=== PATIENT | female | born 1950 | race Caucasian/White ===

== ENCOUNTER 2020-07-29 22:45 | Inpatient (IN) | payer OTHER ==
[~2020-07-29] VITALS: Ht 165.1 cm; Wt 98.7 kg
[2020-07-29 22:47] VITALS: BP 157/73
[2020-07-29] MEDS ORDERED: DALFAMPRIDINE E10 MG PO (23:11)
[2020-07-29] MEDS ORDERED: LEVO-T100 MCG PO (23:11)
[2020-07-29] MEDS ORDERED: MIRAPEX 0.250.25 M1 PO (23:12)
[2020-07-29] MEDS ORDERED: CHILDREN'S ASPI81 M1 PO (23:12)
[2020-07-29 23:18] LABS: ABSOLUTE EOSINOPHILS 0.5 thou/uL (0.0-0.7); ABSOLUTE LYMPHOCYTES 2.7 thou/uL (0.8-5.3); ABSOLUTE MONOCYTES 0.8 thou/uL (0.0-1.2); ABSOLUTE NEUTROPHILS 3.9 thou/uL (1.6-8.1); BASOPHILS 0.6 %; EOSINOPHILS 5.9 %; HEMATOCRIT 38.3 % (37.0-47.0); HEMOGLOBIN 12.9 gm/dL (12.0-15.0); LYMPHOCYTES 34.2 %; MCH 30.6 pg (26.0-34.0); MCHC 33.6 g/dL (28.0-37.0); MCV 91.2 fL (80.0-100.0); MONOCYTES 10.5 %; MPV 7.5 fl. (7.2-11.1); NUCLEATED RBCS 0 /100WBC; PLATELET COUNT* 375 thou/uL (150-400); POLYS 48.8 %
[2020-07-29 23:39] LABS: CALCIUM 8.7 mg/dL (8.5-10.1); CREATININE 0.8 mg/dL (0.6-1.3); POTASSIUM 3.8 mmol/L (3.5-5.1)
[2020-07-29 23:41] LABS: PROTIME 10.3 Seconds (9.20-11.50)
[2020-07-29 23:50] LABS: ALBUMIN 3.3 g/dL (3.4-5.0); MAGNESIUM 2.1 mg/dL (1.8-2.4); TOTAL BILIRUBIN 0.4 mg/dL (<0.1-1.0); TOTAL PROTEIN 7.3 g/dL (6.4-8.2)
[2020-07-30] VITALS (7 sets, daily range): BP systolic 135–151; BP diastolic 41–87
[2020-07-30 03:01] LABS: URINE BILIRUBIN NEGATIVE (Negative); URINE BLOOD NEGATIVE (Negative); URINE CLARITY CLEAR; URINE COLOR YELLOW; URINE GLUCOSE-RANDOM NEGATIVE (Negative); URINE KETONES NEGATIVE (Negative); URINE LEUKOCYTES-REFLEX NEGATIVE (Negative); URINE NITRITE-REFLEX NEGATIVE (Negative); URINE PROTEIN NEGATIVE (Negative); URINE UROBILINOGEN 0.2 E.U./dl (0.2-1.0)
--- NOTE | 2020-07-30 07:44 | NUR ---
PATIENT ARRIVED ON FLOOR FROM ER AT ABOUT 0600. PATIENT ADMISSION HISTORY AND ASSESSMENT WAS COMPLETED CHARTED. PATIENT INSTRUCTED TO CALL FOR HELP IF NEEDED. WILL CONTINUE TO MONITOR.
[2020-07-31 03:28] VITALS: BP 131/47
[2020-07-31 04:20] LABS: ABSOLUTE EOSINOPHILS 0.3 thou/uL (0.0-0.7); ABSOLUTE LYMPHOCYTES 2.2 thou/uL (0.8-5.3); ABSOLUTE MONOCYTES 0.7 thou/uL (0.0-1.2); ABSOLUTE NEUTROPHILS 2.9 thou/uL (1.6-8.1); BASOPHILS 0.5 %; EOSINOPHILS 5.5 %; HEMATOCRIT 33.6 % (37.0-47.0); HEMOGLOBIN 11.3 gm/dL (12.0-15.0); LYMPHOCYTES 35.9 %; MCH 30.7 pg (26.0-34.0); MCHC 33.7 g/dL (28.0-37.0); MCV 91.2 fL (80.0-100.0); MONOCYTES 11.8 %; MPV 7.9 fl. (7.2-11.1); NUCLEATED RBCS 0 /100WBC; PLATELET COUNT* 303 thou/uL (150-400); POLYS 46.3 %; RBC 3.69 mil/uL (4.20-5.00); RDW-CV 14.3 % (10.5-14.5); WBC 6.2 thou/uL (4.0-11.0)
[2020-07-31 04:32] LABS: CALCIUM 8.4 mg/dL (8.5-10.1); CREATININE 0.8 mg/dL (0.6-1.3); POTASSIUM 3.9 mmol/L (3.5-5.1)
--- NOTE | 2020-07-31 05:00 | NUR ---
PT A&OX4, VSS ON ROOM AIR, IV SALINE LOCKED. NO CO PAIN OR DISCOMFORT. PT SLEEPING WELL. PT REPOSITIONED Q2H. ASSESSMENTS AND HOURLY ROUNDINGS COMPLETE, WILLCONTINUE TO MONITOR.
[2020-07-31 08:00] VITALS: BP 134/48
[2020-07-31] MEDS ORDERED: ELIQUIS5 MG PO ×2 (08:28)
--- NOTE | 2020-07-31 10:26 | EKG ---
[place] [address] ELECTROCARDIOGRAM REPORT Name: SHANTA BATISTA Room: [address] ADM IN ..#: [id number] Admission: 07/30/20 Attend Phys: Wilver Aguilera, Discharge: Date of : 46 Date of Service: 07/29/20 2335 Report #: [id number] THIS REPORT FOR: //name// [facility] ED Test Date: 2020-07-29 Test Time: 23:35:32 Pat Name: SHANTA BACONSAMEFRAÍN Department: Room: [facility] Gender: F Supervisor Nut Processing: DAVID : [id number] Requested By: Bessie Palomino Order Number: [id number] MD: Rick Zapien Measurements Intervals [place] Rate: 66 P: 40 ND: 159 QRS: 22 QRSD: 85 T: 19 QT: 451 QTc: 473 Interpretive Statements Sinus rhythm nonspecific t wave changes Low voltage, precordial leads Baseline wander in lead(s) III,aVL No previous ECG available for comparison Electronically Signed On 07-31-2020 10:26:38 CDT by Rick Zapien [email or web address] <ELECTRONICALLY SIGNED> By: Rick Zapien MD, [facility] 07/31/20 1026 2335 [id number] Rick Zapien MD, [facility] /EPI
--- NOTE | 2020-07-31 10:46 | NUR ---
cm s/w pt. pt lives home with spouse. spouse assist w/care and adls. pt stated she ambulate from bed to bathroom, but otherwise "I stay in the bed." pt is interested in hh. cm check the cost of eliquis,$21.98. pt notified of cost. cm faxed referral to [facility] [phone].
[2020-07-31 12:39] VITALS: BP 134/48
[2020-07-31 12:42] VITALS: BP 136/46
[2020-07-31 14:21] VITALS: BP 134/48
--- NOTE | 2020-07-31 16:41 | NUR ---
ASSUMED PT CARE AT 0730, PT AOX4, NO C/O PAIN, WORKED W/ DR AND DC ORDERS RECEIVED. DC INSTRUCTIONS GIVEN TO TAKE 10 MG BLOOD THINNER BID FOR A WEEK AND THEN REDUCE DOSE TO 5 MG BID. 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 PT DC'D BY WC W/ NURSING STAFF AND ALL PAPERWORK AND PERSONAL BELONGINGS TO 'S VEHICLE AT APPROX 1635, INSTRUCTION GIVEN TO F/U W/ PCP IN A WEEK.
== END 2020-07-31 16:35 | disposition home health service (06) | DRG 175 ==
LOC: M.ERS 22:45 → M.2W 07-30 04:02 → M.TBA-ER 07-30 04:02 → M.2W 07-30 05:48
PROVIDERS: Emergency Medicine; ADMIT Internal Medicine; ATTEND Internal Medicine
DX: I26.94 Multiple subsegmental thrombotic pulmonary emboli without acute cor pulmonale (principal); G82.50 Quadriplegia, unspecified; G35 Multiple sclerosis; E03.9 Hypothyroidism, unspecified; Z20.822 Contact with and (suspected) exposure to COVID-19; Z86.718 Personal history of other venous thrombosis and embolism; Z86.711 Personal history of pulmonary embolism; Z79.899 Other long term (current) drug therapy; Z79.82 Long term (current) use of aspirin; Z88.2 Allergy status to sulfonamides; Z90.710 Acquired absence of both cervix and uterus; Z87.891 Personal history of nicotine dependence; Z72.89 Other problems related to lifestyle